=== PATIENT | male | born 1985 | race Native Hawaiian/Other Pacific Islander ===

== ENCOUNTER 2018-03-25 15:22 | Emergency (ER) | payer MEDICAID, OTHER ==
[~2018-03-25] VITALS: Ht 172.7 cm; Wt 86.4 kg
[2018-03-25 15:44] VITALS: BP 112/82
[2018-03-25] MEDS ORDERED: CEPHALEXIN MONOHYDRATE 500 MG CAPSULE PO ONE (16:30)
[2018-03-25] MEDS ORDERED: SULFAMETHOX/TRIMETH DS 800-160 MG/TABLET PO ONE (16:30)
== END 2018-03-25 17:17 | disposition home or self-care (01) ==
LOC: EMS 15:24
DX: H60.12 Cellulitis of left external ear (principal); F17.210 Nicotine dependence, cigarettes, uncomplicated

== ENCOUNTER 2021-07-18 01:38 | Emergency (ER) | payer OTHER ==
[~2021-07-18] VITALS: Ht 172.7 cm; Wt 86.4 kg
[2021-07-18 01:46] VITALS: BP 122/72
[2021-07-18] MEDS ORDERED: DOXY50 PO (05:07)
[2021-07-18] MEDS ORDERED: ACETAMINOPHEN 500 MG TABLET PO ONE (05:15)
== END 2021-07-18 05:43 | disposition home or self-care (01) ==
LOC: EMS 01:40
DX: N49.2 Inflammatory disorders of scrotum (principal)
CPT/HCPCS: 99283

== ENCOUNTER 2021-10-09 19:03 | Emergency (ER) | payer MEDICAID, OTHER ==
[~2021-10-09] VITALS: Ht 172.7 cm; Wt 88.6 kg
[~2021-10-09 19:03] MED LIST: DOXY50 PO
[2021-10-09 22:33] VITALS: BP 129/62
== END 2021-10-09 22:35 | disposition home or self-care (01) ==
LOC: EMS 19:08
DX: F41.9 Anxiety disorder, unspecified (principal)
CPT/HCPCS: 71045; 93005; 99283

== ENCOUNTER 2021-10-19 15:11 | Emergency (ER) | payer OTHER ==
[~2021-10-19] VITALS: Ht 175.3 cm; Wt 77.2 kg
[2021-10-19] MEDS ORDERED: HydrOXYzine PAMOATE 50 MG CAPSULE PO ONE (15:45)
[2021-10-19 16:59] VITALS: BP 117/68
[2021-10-19] MEDS ORDERED: HYDR50CA7 PO (17:10)
== END 2021-10-19 17:23 | disposition home or self-care (01) ==
LOC: EMS 15:11
DX: F41.9 Anxiety disorder, unspecified (principal)
CPT/HCPCS: 99283

== ENCOUNTER 2022-02-16 17:09 | Emergency (ER) | payer OTHER ==
[~2022-02-16] VITALS: Ht 172.7 cm; Wt 93.2 kg
[~2022-02-16 17:09] MED LIST changes: -DOXY50 PO; +HYDR50CA7 PO
[2022-02-16 17:47] VITALS: BP 131/74
[2022-02-16] MEDS ORDERED: CORTSOL AS (19:04)
[2022-02-16] MEDS ORDERED: CEPH-558 PO (19:04)
[2022-02-16] MEDS ORDERED: SULF-261 PO (19:04)
== END 2022-02-16 19:17 | disposition home or self-care (01) ==
LOC: EMS 17:14
DX: H60.12 Cellulitis of left external ear (principal); H60.92 Unspecified otitis externa, left ear
CPT/HCPCS: 99283